=== PATIENT | male | born 1980 | race Caucasian/White ===

== ENCOUNTER 2017-06-26 16:26 | Emergency (ER) | payer MEDICAID ==
[~2017-06-26] VITALS: Ht 170.2 cm; Wt 78.8 kg
[2017-06-26 16:51] VITALS: Ht 170.2 cm; Wt 78.8 kg
[2017-06-26] MEDS ORDERED: LIDOCAINE 1% (MDV) 20 ML INJ SC ONE (18:00)
--- NOTE | 2017-06-26 18:06 | ERD ---
ER Documentation Chief Complaint Chief Complaint right thumb laceration and blunt trauma to the left 5th digit HPI 36-year-old male comes in with a laceration to the right thumb after cutting an onion at work, and then while he was going to the hospital he closed the car door on his left pinky finger. He presents with powder substance and help to stop bleeding on the right thumb. He has no paresthesias or weakness. He does not recall his last tetanus shot was. ROS All systems reviewed and are negative except as per history of present illness. Medications Home Meds Active Scripts Cephalexin* (Keflex*) 500 Mg Capsule, 500 MG PO TID for 7 Days, CAP Prov:YEIMI GODINEZ PA-C 06/26/17 Ibuprofen* (Motrin*) 600 Mg Tab, 600 MG PO Q6, #30 TAB Prov:YEIMI GODINEZ PA-C 06/26/17 Allergies Allergies: Coded Allergies: No Known Allergy (Unverified , 06/26/17) PMhx/Soc Medical and Surgical Hx: pt denies Medical Hx, pt denies Surgical Hx Hx Alcohol Use: No Hx Substance Use: No Hx Tobacco Use: No Smoking Status: Never smoker Physical Exam Vitals Vital Signs Date Time Temp Pulse Resp B/P Pulse Ox O2 Delivery O2 Flow Rate FiO2 06/26/17 16:51 97.8 82 16 140/84 97 Physical Exam General: Well-developed, well-nourished. The patient appears in no acute distress. HEENT: Head is normocephalic, atraumatic. No scleral icterus. Neck: Supple. Nontender. Lungs: Clear to auscultation. Normal air movement. Heart: Regular rate and rhythm. S1 and S2 are normal. No murmurs, gallops, or rubs. Abdomen: Nondistended. Extremities: Superficial avulsion laceration of the right thumb pad, patient has full range of motion at the IP joint with flexion extension. There is a subungual hematoma on the left fifth digit approximately 30%, superficial laceration to the cuticle. He is able flex and extend at the DIP, PIP and MCP joint, capillary refill less than 2 seconds. Neurologic: Alert and oriented 3. No focal deficits. Normal speech and gait. Skin: Normal turgor. No rash or lesions. Results 24 hrs Current Medications Medications (Trade) Dose Ordered Sig/Campos Route PRN Reason Start Time Stop Time Status Last Admin Dose Admin Lidocaine (Xylocaine 1% (Mdv) 20 ml) 20 ml ONCE ONCE SC 06/26/17 18:00 06/26/17 18:26 DC Acetaminophen (Tylenol Tab) 650 mg ONCE ONCE PO 06/26/17 18:30 06/26/17 18:31 DC 06/26/17 18:42 Ibuprofen (Motrin) 600 mg ONCE ONCE PO 06/26/17 18:30 06/26/17 18:31 DC 06/26/17 18:43 DIAGNOSTIC IMAGING REPORT Patient: RAJESH PICKETT : 1980 Age: 36 Sex: M MR #: [id number] DOS: 06/26/17 1815 Ordering MD: YEIMI GODINEZ PA-C Location: [facility] Room/Bed: PROCEDURE: XR Right Thumb CLINICAL INDICATION: Laceration TECHNIQUE: AP, oblique, and lateral radiographs were submitted. COMPARISON: None FINDINGS: Osseous structures: appear well mineralized and intact with no fracture or destructive process identified. Joint spaces: are well maintained, with no significant spurring, erosion or joint effusion evident. Soft tissues: There appears to be an avulsion/laceration involving the tip of the right thumb. IMPRESSION: 1. Laceration/soft tissue avulsion involving the tip of the right thumb. 2. The osseous elements and joint spaces appear normal. Physician Arelis Date Time Electronically viewed and signed by Physician Arelis on 06/26/2017 18:43 RH/ CC: YEIMI GODINEZ PA-C Radiology Main Line: [phone] DIAGNOSTIC IMAGING REPORT Patient: RAJESH PICKETT : 1980 Age: 36 Sex: M MR #: [id number] DOS: 06/26/17 1754 Ordering MD: YEIMI GODINEZ PA-C Location: [facility] Room/Bed: PROCEDURE: XR Left pinky finger CLINICAL INDICATION: Blunt trauma to finger tip TECHNIQUE: AP, oblique, and lateral radiographs were submitted. COMPARISON: None FINDINGS: Osseous structures: An incomplete partial nondisplaced fracture is seen to the distal lateral aspect of the distal phalanx of the left pinky finger at the base of the wall tuft. The remaining osseous elements appear intact. Joint spaces: are well maintained, with no significant spurring, erosion or joint effusion evident. Soft tissues: There is soft tissue swelling about the distal pinky finger. IMPRESSION: Nondisplaced partial fracture involving the distal lateral aspect of the distal phalanx of the left pinky finger. Physician Arelis Date Time Electronically viewed and signed by Physician Arelis on 06/26/2017 18:42 RH/ CC: YEIMI GODINEZ PA-C Procedures/MDM Patient's tetanus is updated. He was given Tylenol and ibuprofen for pain. Wound care was done, irrigation was sent to remove the powder. There is a small avulsion laceration, no laceration repair required. Patient's left pinky finger, wound care was done, clean dressing and a metal finger splint. Splint Assessment: Neurovascularly intact post splint placement with good fit. Medical decision makin-year-old male comes in with a superficial avulsion laceration to the right thumb pad, it is superficial, no sutures warranted. Tetanus was updated and wound care was done. There is a small crush injury, causing superficial laceration to the cuticle, with an underlying fracture of the fingertip of the distal phalanx of the left fifth digit. The area it being an open fracture, he should be covered with Keflex. Advised follow-up with orthopedics 1 week. Departure Diagnosis: Primary Impression: Laceration Additional Impression: Fracture, finger, open Condition: Good YEIMI GODINEZ PA-C Jun 26, 2017 18:06
[2017-06-26] MEDS ORDERED: ACETAMINOPHEN 325 MG TAB PO ONE (18:30)
[2017-06-26] MEDS ORDERED: IBUPROFEN 600 MG TAB PO ONE (18:30)
--- NOTE | 2017-06-26 18:42 | RADRPT ---
PROCEDURE: XR Left pinky finger CLINICAL INDICATION: Blunt trauma to finger tip TECHNIQUE: AP, oblique, and lateral radiographs were submitted. COMPARISON: None FINDINGS: Osseous structures: An incomplete partial nondisplaced fracture is seen to the distal lateral aspect of the distal phalanx of the left pinky finger at the base of the wall tuft. The remaining osseous elements appear intact. Joint spaces: are well maintained, with no significant spurring, erosion or joint effusion evident. Soft tissues: There is soft tissue swelling about the distal pinky finger. IMPRESSION: Nondisplaced partial fracture involving the distal lateral aspect of the distal phalanx of the left pinky finger. Physician Arelis Date Time Electronically viewed and signed by Physician Arelis on 06/26/2017 18:42 /
--- NOTE | 2017-06-26 18:43 | RADRPT ---
PROCEDURE: XR Right Thumb CLINICAL INDICATION: Laceration TECHNIQUE: AP, oblique, and lateral radiographs were submitted. COMPARISON: None FINDINGS: Osseous structures: appear well mineralized and intact with no fracture or destructive process iden tified. Joint spaces: are well maintained, with no significant spurring, erosion or joint effusion evident. Soft tissues: There appears to be an avulsion/laceration involving the tip of the right thumb. IMPRESSION: 1. Laceration/soft tissue avulsion involving the tip of the right thumb. 2. The osseous elements and joint spaces appear normal. Physician Arelis Date Time Electronically viewed and signed by Physician Arelis on 06/26/2017 18:43 /
[2017-06-26] MEDS ORDERED: CEPH-443 PO (18:48)
[2017-06-26] MEDS ORDERED: IBUP-1542 PO (18:48)
[2017-06-26] MEDS ORDERED: DIPHTH/TET/ACEL PERTUSS (ADULT) 0.5 ML VIAL IM* ONE (19:00)
== END 2017-06-26 19:12 | disposition home or self-care (01) ==
LOC: FTE 16:26
DX: S62.667B Nondisplaced fracture of distal phalanx of left little finger, initial encounter for open fracture (principal); W26.8XXA Contact with other sharp object(s), not elsewhere classified, initial encounter; Y92.89 Other specified places as the place of occurrence of the external cause; Z23 Encounter for immunization
CPT/HCPCS: 29130; 73140; 90471; 90715; Z7502; Z7610